=== PATIENT | male | born 1955 | race Caucasian/White ===

== ENCOUNTER → 2022-05-03 | Outpatient (CLI) | payer MEDICARE, BC, SELFPAY ==
--- NOTE | 2022-05-03 07:43 | US_ITS ---
STUDY: ABDOMINAL ULTRASOUND - RIGHT UPPER QUADRANT REASON FOR VISIT: Male, 66 years old Abdominal pain, vomiting bile, multiple episodes TECHNIQUE: Ultrasound evaluation of the right upper quadrant was performed with real-time and static bonilla-scale imaging. TECHNICAL QUALITY: Adequate. COMPARISON: None. FINDINGS: Liver: The liver is enlarged and measures 18.4 cm. There is increased echogenicity consistent with fatty infiltration. The bile ducts are within normal limits. There is hepatic color flow. The direction of portal flow is hepatopetal. There is no demonstrated mass lesion. Gallbladder: Normal distended gallbladder. The gallbladder wall measures 2.3 mm. There is a negative sonographic Choudhary''s sign. There is no pericholecystic fluid. There are no gallstones. Common Bile Duct (C.B.D.): The common bile duct measures 2.5 mm. Pancreas: Normal size of the head, body and tail of the pancreas. There is increased echogenicity of the pancreas. There is no demonstrated pancreatic mass or cyst. Right Kidney: Normal size of the right kidney. The right kidney measures 12.6 cm x 5.6 x 5.5 cm. Normal renal cortex. The right cortex measures 2.3 cm. There is a 2.4 cm x 1.9 cm x 1.9 cm right renal cyst There is no right hydronephrosis. US/Gallbladder IMPRESSION: Hepatomegaly and diffuse fatty infiltration of liver. Right renal cyst. Electronically Signed: Lior Miller MD at 9:41 EDT ,
[2022-05-03 08:20] LABS: Absolute Lymphocyte Count 2.62 X10^3/uL (0.83-4.51); Absolute Neutrophil Count 4.1 X10^3/uL (2.0-7.7); Basophil# 0.03 X10^3/uL; Basophil% 0.4 % (0-1); Eosinophil# 0.42 X10^3/uL; Eosinophils% 5.4 % (0-5); Hematocrit 43.5 % (40-54); Hemoglobin 14.2 g/dL (13.0-16.5); Lymphocyte # 2.62 X10^3/ul (0.83-4.51); Lymphocyte % 33.6 % (19-41); Mean Corp Hgb Conc 32.6 g/dL (32-36); Mean Corpuscular Hgb 27.2 pg (27.0-32.0); Mean Corpuscular Volume 83.3 fL (80-94); Monocyte# 0.56 X10^3/uL; Monocyte% 7.2 % (0-10); NRBC Flagged by Analyzer 0 % (0-5); Neutrophil # 4.13 X10^3/uL (2.7-7.7); Platelet Count 198 K/mm3 (150-450); RBC Distribution Width CV 13.2 % (11.6-14.6); RBC Distribution Width SD 40.2 fl (35.1-43.9); Red Blood Count 5.22 M/mm3 (4.6-6.2); White Blood Count 7.8 K/mm3 (4.4-11.0)
[2022-05-03 09:04] LABS: ALB/GLOB Ratio 0.9 RATIO (0.9-2.4); AST(SGOT) 13 U/L (15-37); Alanine Aminotransfer ALT/SGPT 18 U/L (16-61); Albumin, Serum 3.5 g/dL (3.2-5.0); Alkaline Phosphatase 83 U/L (45-117); Anion Gap 7 (5-15); BUN 10 mg/dL (7-18); BUN/Creat Ratio 12.1 RATIO (10-20); Calcium,Total 9.2 mg/dL (8.5-10.1); Chloride 106 mmol/L (98-107); Creatinine, Serum 0.83 mg/dL (0.70-1.30); EST Glomerular Filtration Rate 99 mL/min (>60); Est Glom Filt Rate - Afr Amer 120 mL/min (>60); Globulin 3.7 g/dL (2.2-4.2); Glucose 158 mg/dL (74-106); Protein, Total 7.2 g/dL (6.4-8.2); Sodium Level 139 mmol/L (136-145)
== END | disposition home or self-care (01) ==
PROVIDERS: PCP Family Medicine; Referring Provider Surgery; Visit Provider Surgery
DX: R10.11 Right upper quadrant pain (principal); R11.14 Bilious vomiting
CPT/HCPCS: 36415; 76705; 80053; 85025

== ENCOUNTER → 2022-10-22 | Outpatient (CLI) | payer MEDICARE, BC, SELFPAY ==
[2022-10-22 17:03] LABS: Follicle Stimulating Hormone 7.3 mIU/mL; Luteinizing Hormone 4.2 mIU/mL; Prolactin 13.4 ng/mL
== END | disposition home or self-care (01) ==
LOC: LAB 14:43
PROVIDERS: PCP Family Medicine; Visit Provider Urology
DX: E29.1 Testicular hypofunction (principal)
CPT/HCPCS: 36415; 83001; 83002; 84146

== ENCOUNTER 2023-04-22 10:19 | Outpatient (CLI) | payer MEDICARE, BC, SELFPAY ==
[2023-04-22 11:41] LABS: PSA,Total- Diagnostic 2.97 ng/mL (0.0-4.0)
== END 2023-04-22 23:59 | disposition home or self-care (01) ==
LOC: LAB 10:21
PROVIDERS: PCP Family Medicine; Referring Provider Urology; Visit Provider Urology
DX: E29.1 Testicular hypofunction (principal); N40.1 Benign prostatic hyperplasia with lower urinary tract symptoms
CPT/HCPCS: 36415; 84153; 84403

== ENCOUNTER 2023-10-07 07:26 | Emergency (ER) | payer MEDICARE, BC, SELFPAY ==
[2023-10-07 07:27] VITALS: BP 119/79; PULSE 106; RESP 14; TEMP 36.8; O2SAT 94; O2SAT 96; BMI 37.7
--- NOTE | 2023-10-07 07:46 | EKG12_ITS ---
Test Reason : CHEST PAIN Blood Pressure : / mmHG Vent. Rate : 105 BPM Atrial Rate : 105 BPM P-R Int : 164 ms QRS Dur : 100 ms QT Int : 350 ms P-R-T Axes : 021 -58 004 degrees QTc Int : 462 ms Sinus tachycardia Left axis deviation Inferior infarct , age undetermined Possible Anterolateral infarct , age undetermined Abnormal ECG Confirmed by HAKAN LINK, HESHAM ([id number]), newspaper copy editor ISABEL NULL ([id number]) on 10/14/2023 8:10:36 AM Referred By: Tommy Norman Confirmed By:HESHAM MCCLENDON MD
--- NOTE | 2023-10-07 08:10 | RAD_ITS ---
INDICATION: chest pain EXAMINATION/TECHNIQUE: X-RAY - XR Chest 1 View COMPARISON: No relevant prior comparison study available FINDINGS: LINES/DEVICES: None. LUNGS: No consolidation, edema or effusion. No pneumothorax. MEDIASTINUM AND CARDIOVASCULAR STRUCTURES: Cardiac silhouette not enlarged. Central airways and mediastinal contour are unremarkable. BONES AND SOFT TISSUES: Unremarkable. RAD/Chest 1 View (Portable) IMPRESSION: No radiographic evidence of acute cardiopulmonary disease. Electronically Signed: Shanel Espino MD at 8:20 EST ,
[2023-10-07 08:17] LABS: Absolute Lymphocyte Count 0.94 X10^3/uL (0.83-4.51); Absolute Neutrophil Count 12.5 X10^3/uL (2.0-7.7); Basophil# 0.08 X10^3/uL; Basophil% 0.5 % (0-1); Eosinophil# 0.09 X10^3/uL; Eosinophils% 0.6 % (0-5); Hemoglobin 15.6 g/dL (13.0-16.5); Lymphocyte # 0.94 X10^3/ul (0.83-4.51); Lymphocyte % 6.4 % (19-41); Mean Corp Hgb Conc 33.2 g/dL (32-36); Mean Corpuscular Hgb 27.6 pg (27.0-32.0); Mean Corpuscular Volume 83.2 fL (80-94); Mean Platelet Vol. 11.4 fl (6.2-12.0); Monocyte# 1.05 X10^3/uL; Monocyte% 7.1 % (0-10); NRBC Flagged by Analyzer 0 % (0-5); Neutrophil # 12.46 X10^3/uL (2.7-7.7); Neutrophil % 84.6 % (47-70); Platelet Count 130 K/mm3 (150-450); RBC Distribution Width CV 13.1 % (11.6-14.6); RBC Distribution Width SD 39.4 fl (35.1-43.9); Red Blood Count 5.65 M/mm3 (4.6-6.2); White Blood Count 14.7 K/mm3 (4.4-11.0)
--- NOTE | 2023-10-07 08:27 | CT_ITS ---
INDICATION: AAA EXAMINATION: CTA CHEST, ABDOMEN AND PELVIS WITH CONTRAST - TECHNIQUE: A CTA of the chest, abdomen, and pelvis is obtained with sagittal and coronal reconstructed MIP views. Three-dimensional surface rendered sequence of the thoracic and abdominal aorta was obtained. A radiation dose optimization technique was used for this scan. 100 mL of Isovue-370. Oral contrast: None. RADIATION DOSAGE (If Supplied By Facility): CTDIvol = ( 17.38 ) mGy, DLP = ( 1472.19 ) mGycm COMPARISON: No relevant prior comparison study available FINDINGS: CT CHEST: THORACIC AORTA: There is atherosclerosis. The ascending thoracic aorta measures 4.4 x 4.4 cm in diameter the descending thoracic aorta measures 2.6 x 2.3 cm in diameter. No dissection. ABDOMINAL AORTA: No aneurysm or dissection. There is atheromatous disease of the abdominal aorta and the iliac arteries. LUNGS: There is minimal dependent atelectasis within the lower lobes. No effusions or pneumothorax. MEDIASTINUM: The thyroid gland is normal. No mediastinal or hilar adenopathy. HEART: There is a small pericardial effusion. There are coronary artery calcifications. CT ABDOMEN AND PELVIS: LIVER: The liver is diffusely low in attenuation consistent with fatty infiltration. There is hepatomegaly. No masses identified. GALLBLADDER: The CBD is normal. Normal gallbladder. SPLEEN: Normal. PANCREAS: No masses or inflammation. ADRENAL GLANDS: Normal. KIDNEYS AND URETERS: The kidneys both enhance appropriately. There are normal size and shape. No hydronephrosis or nephrolithiasis. There is a right renal cyst. STOMACH: Normal. SMALL BOWEL: No abnormal distention of the small bowel. MESENTERY: No mesenteric inflammation. No ascites. COLON: There are diverticula arising from the colon. APPENDIX: The appendix is visualized and normal. IVC: Normal. RETROPERITONEUM: No retroperitoneal lymphadenopathy. PELVIC STRUCTURES: Normal bladder. The prostate gland is enlarged. SOFT TISSUES ABDOMEN: The anterior abdominal wall is normal. SOFT TISSUE CHEST: The extrathoracic soft tissues are normal. BONES: There are degenerative changes of the thoracic and lumbar spine. CT/CTA Chst, Abd, Pel W and/or WO IMPRESSION: Ectatic ascending thoracic aorta measuring up to 4.4 x 4.4 cm. Atherosclerosis. No aortic dissection identified. Small pericardial effusion. Minimal bibasilar lower lobe atelectasis. Enlarged prostate gland. Colonic diverticulosis. Electronically Signed: Shanel Espino MD at 9:23 EST ,
--- NOTE | 2023-10-07 08:30 | EDS_ITS ---
HPI History of Present Illness Chief Complaint: Chest Pain Narrative Narrative: 68-year-old male presenting with chest pain. 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 Last meal was last evening. He woke up this morning at 0 100 with epigastric pain/chest pain which began to be nausea, vomiting, diarrhea he states he had several episodes of each while he was at home. Patient has significant cardiac history and states he has 2 cardiac stents and is currently wearing a manager monitoring to assess for atrial fibrillation. Patient not anticoagulated. Patient does state he has a history of a AAA which is just over 2 cm as far as he can recall. Patient states that when he had his last heart attack he had similar episodes of nausea, vomiting, diarrhea. He ended up with 2 cardiac stents after this. Patient is on aspirin and Plavix daily. Patient is on fever, chills. Patient was given aspirin, nitroglycerin, fentanyl in route for his symptoms. He was not given anything for nausea and he states he feels pretty comfortable right now. His pain and nausea are well-controlled. [facility] Home Medications aspirin 81 mg tablet,delayed release (Adult Aspirin Regimen) 81 mg PO DAILY 05/03/22 [History Last Taken Unknown] atorvastatin 40 mg tablet 40 mg PO DAILY 05/03/22 [History Last Taken Unknown] cholecalciferol (vitamin D3) 50 mcg (2,000 unit) capsule 50 mcg PO DAILY 05/03/22 [History Last Taken Unknown] clopidogrel 75 mg tablet (Plavix) 75 mg PO DAILY 05/03/22 [History Last Taken Unknown] glipizide 2.5 mg tablet, extended release 24 hr 2.5 mg PO DAILY 05/03/22 [History Last Taken Unknown] lisinopril 20 mg tablet 20 mg PO DAILY 05/03/22 [History Last Taken Unknown] loratadine 10 mg tablet (Allergy Relief (loratadine)) 10 mg PO DAILY 05/03/22 [History Last Taken Unknown] metformin 500 mg tablet 1,000 mg PO BID 05/03/22 [History Last Taken Unknown] semaglutide 0.25 mg or 0.5 mg (2 mg/1.5 mL) subcutaneous pen injector (Ozempic) 0.5 mg subcut QWEEK 05/03/22 [History Last Taken Unknown] zinc acetate 25 mg (zinc) capsule 30 mg PO DAILY 05/03/22 [History Last Taken Unknown] glucosamine sulfate 2KCl 1,000 mg capsule 1,000 mg PO DAILY 10/07/23 [History Last Taken Unknown] ondansetron 4 mg disintegrating tablet 4 mg PO Q8H PRN PRN Nausea #20 tabs 10/07/23 [Rx Last Taken Unknown] Allergy/AdvReac Type Severity Reaction Status Date / Time Penicillins Allergy swelling, Verified 10/07/23 07:33 skin peeling Family History Father Heart disease Hypertension Myocardial infarction Grandfather Diabetes Hypertension High cholesterol Grandmother Hypertension Mother Diabetes Hypertension Surgical History History of heart artery stent History of right knee joint replacement History of surgery on arm Social History Smoking Status: Never smoker alcohol intake: never substance use type: does not use ROS ROS ED Constitutional Constitutional ED: Denies chills, fever(s) or sweats Eyes Eyes: Denies blurry vision or change in vision ENT ENT ED: Denies ear pain or sore throat Cardiovascular Cardiovascular: Reports chest pain; Denies palpitations or racing heartbeat Respiratory/Chest Respiratory/Chest: Denies cough, dyspnea or sputum Gastrointestinal Gastrointestinal: Reports abdominal pain, diarrhea, nausea and vomiting; Denies constipation Genitourinary Genitourinary ED: Denies dysuria, hematuria or urinary frequency Musculoskeletal Musculoskeletal: Denies arthralgias, myalgias or neck pain Integumentary Denies abscess, Abrasions or rash Neurologic Neurologic: Denies headache(s), paresthesias or weakness Psychiatric Psychiatric: Denies anxiety, depression, suicidal ideation or suicidal thoughts Endocrine Endocrinology: Denies polydipsia or polyuria EXAM Physical Exam Const Vital Signs: 10/07/23 07:27 10/07/23 07:41 10/07/23 08:21 Temperature 98.3 F Temperature Source Oral Pulse Rate 106 H Respiratory Rate 14 Respiratory Effort Normal Non-Labored Blood Pressure 119/79 Blood Pressure Mean 92 Pulse Ox 96 Oxygen Delivery Method Room Air Room Air 10/07/23 09:39 10/07/23 11:00 10/07/23 11:00 Temperature Temperature Source Pulse Rate 84 57 L 57 L Respiratory Rate 18 15 16 Respiratory Effort Blood Pressure 145/87 H 164/78 H 130/79 H Blood Pressure Mean 106 106 96 Pulse Ox 97 95 95 Oxygen Delivery Method Room Air Room Air MDM MDM MDM Narrative Medical decision making narrative: Patient presenting chest pain, nausea, vomiting, diarrhea. 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 Differential includes ACS, duration, anemia, electrode normalities, pneumonia, gastritis, colitis, pancreatitis, food poisoning, viral. CBC obtained to assess white blood cell count, hemoglobin, platelets. CMP to assess liver function, renal function, electrolytes. Lipase to assess for pancreatitis. Patient states he is currently pain-free and denies anything for nausea. EKG shows sinus tachycardia ventricular to 105 bpm without sign of ischemic change or dysrhythmia on my interpretation. High-sensitivity troponin 12 and delta troponin 13. CTA of the chest abdomen pelvis was obtained due to the patient's history of AAA in the past. He states is normal about 2 cm. Today he has a CTA which shows ascending thoracic aorta measuring up to 4.4 x 4.4 cm. Last imaging he states was in 2019 he believes. There is no record of this. Patient is been pain-free throughout stay here. Sepsis workup is normal and he is pain-free will discharge home and follow-up with PCP. Return precautions discussed. Impression: 1. Chest pain 2. abdominal pain 3. nausea, vomiting 4. Diarrhea 5. History of aneurysm Lab Data Attestation: I reviewed the patient's lab results. Labs: Laboratory Results - last 24 hr 10/07/23 10/07/23 07:40 09:45 WBC 14.7 H RBC 5.65 Hgb 15.6 Hct 47.0 MCV 83.2 MCH 27.6 MCHC 33.2 RDW Std Deviation 39.4 RDW Coeff of Caro 13.1 Plt Count 130 L MPV 11.4 Immature Gran % (Auto) 0.800 Neut % (Auto) 84.6 H Lymph % (Auto) 6.4 L [place] % (Auto) 7.1 Eos % (Auto) 0.6 Baso % (Auto) 0.5 Absolute Neuts (auto) 12.5 H Absolute Lymphs (auto) 0.94 Nucleated RBC % 0 Sodium 137 Potassium 4.1 Chloride 105 Carbon Dioxide 24.0 Anion Gap 8 BUN 16 Creatinine 0.97 Estim Creat Clear Calc 81.11 Est GFR (MDRD) Af Amer 99 Est GFR (MDRD) Non-Af 82 BUN/Creatinine Ratio 16.4 Glucose 329 H Calcium 9.2 Total Bilirubin 0.90 Direct Bilirubin 0.19 AST 14 L ALT 30 Alkaline Phosphatase 88 Troponin I High Sens 12 13 Total Protein 7.4 Albumin 3.3 Globulin 4.1 Lipase 80 H Radiography Diagnostic Testing: Clinical Impression(s) from Imaging Studies Chest X-Ray 10/07/23 08:10 IMPRESSION: No radiographic evidence of acute cardiopulmonary disease. Electronically Signed: Shanel Espino MD at 8:20 EST , Chest/Abdomen/Pelvis CTA 10/07/23 08:27 IMPRESSION: Ectatic ascending thoracic aorta measuring up to 4.4 x 4.4 cm. Atherosclerosis. No aortic dissection identified. Small pericardial effusion. Minimal bibasilar lower lobe atelectasis. Enlarged prostate gland. Colonic diverticulosis. Electronically Signed: Shanel Espino MD at 9:23 EST , ADDENDUM: 10/07/23 0932 IMPRESSION: Fatty infiltration of the liver associated with hepatomegaly. Electronically Signed: Shanel Espino MD at 9:25 EST , Discharge Plan Triage Chief Complaint: Chest Pain ED Provider: Tommy Norman Dx/Rx/DC Orders Instructions: ED Chest Pain, Uncertain Cause, ED Diet Vomiting Diarrhea, ED Vomiting (Adult) Prescriptions: New ondansetron 4 mg tablet,disintegrating 4 mg PO Q8H PRN PRN (Reason: Nausea) Qty: 20 0RF No Action Ozempic 0.25 mg or 0.5 mg(2 mg/1.5 mL) pen injector 0.5 mg subcut QWEEK metformin 500 mg tablet 1,000 mg PO BID lisinopril 20 mg tablet 20 mg PO DAILY glipizide 2.5 mg tablet extended release 24hr 2.5 mg PO DAILY clopidogrel [Plavix] 75 mg tablet 75 mg PO DAILY atorvastatin 40 mg tablet 40 mg PO DAILY loratadine [Allergy Relief (loratadine)] 10 mg tablet 10 mg PO DAILY zinc acetate 25 mg (zinc) capsule 30 mg PO DAILY cholecalciferol (vitamin D3) 50 mcg (2,000 unit) capsule 50 mcg PO DAILY aspirin [Adult Aspirin Regimen] 81 mg tablet,delayed release (DR/EC) 81 mg PO DAILY glucosamine sulfate 2KCl 1,000 mg capsule 1,000 mg PO DAILY Rx Instructions: administer with a meal Primary Care Provider: Simone Del Cid Referrals: Simone Del Cid MD [Primary Care Provider] - Activity Restrictions/Additional Instructions: The ascending thoracic aorta measures 4.4 x 4.4 cm in diameter the descending thoracic aorta measures 2.6 x 2.3 cm in diameter. No dissection. Disposition Disposition: Home, Self Care Discharge Date/Time: 10/07/23 11:05
[2023-10-07 08:35] LABS: Anion Gap 8 (5-15); BUN 16 mg/dL (7-18); BUN/Creat Ratio 16.4 RATIO (10-20); Calcium,Total 9.2 mg/dL (8.5-10.1); Chloride 105 mmol/L (98-107); Creatinine, Serum 0.97 mg/dL (0.70-1.30); EST Glomerular Filtration Rate 82 mL/min (>60); Est Glom Filt Rate - Afr Amer 99 mL/min (>60); Estimated Creatinine Clearance 81.11 ml/min; Glucose 329 mg/dL (74-106); Potassium 4.1 mmol/L (3.5-5.1); Sodium Level 137 mmol/L (136-145); Troponin-I HS (w/2H Reflex) 12 pg/mL (3.0-78.0)
[2023-10-07 09:12] LABS: AST(SGOT) 14 U/L (15-37); Alanine Aminotransfer ALT/SGPT 30 U/L (16-61); Albumin, Serum 3.3 g/dL (3.2-5.0); Alkaline Phosphatase 88 U/L (45-117); Bilirubin, Direct 0.19 mg/dL (0.00-0.30); Globulin 4.1 g/dL (2.2-4.2); Lipase 80 U/L (13-75); Protein, Total 7.4 g/dL (6.4-8.2)
[2023-10-07 09:39] VITALS: BP 145/87; PULSE 84; RESP 18; O2SAT 97
[2023-10-07 10:14] LABS: Reflex Troponin-HS? (from REC) Y
[2023-10-07 10:37] LABS: Troponin-I HS 13 pg/mL (3.0-78.0)
[2023-10-07 11:00] VITALS: BP 130/79; BP 164/78; PULSE 57; RESP 15; RESP 16; O2SAT 95
== END 2023-10-07 11:05 | disposition home or self-care (01) ==
PROVIDERS: Emergency Provider Student in an Organized Health Care Education/Training Program; PCP Family Medicine; Referring Provider Student in an Organized Health Care Education/Training Program; Visit Provider Student in an Organized Health Care Education/Training Program
DX: R07.9 Chest pain, unspecified (principal); I71.21 Aneurysm of the ascending aorta, without rupture; R10.9 Unspecified abdominal pain; R11.2 Nausea with vomiting, unspecified; R19.7 Diarrhea, unspecified; I25.2 Old myocardial infarction; Z95.5 Presence of coronary angioplasty implant and graft; Z79.02 Long term (current) use of antithrombotics/antiplatelets; Z79.82 Long term (current) use of aspirin
CPT/HCPCS: 36415; 71045; 71275; 74174; 80048; 80076; 83690; 84484; 85025; 93005; 99284; Q9967